=== PATIENT | male | born 1990 | race Caucasian/White ===

== ENCOUNTER 2017-07-05 01:33 | Emergency (ER) | payer SELFPAY ==
[~2017-07-05] VITALS: Ht 188 cm; Wt 86.4 kg
[2017-07-05] MEDS ORDERED: LIDOCAINE HCL 2%/EPI 1:200,000/PF 20 ML VIAL INJ ONE (02:00)
[2017-07-05] MEDS ORDERED: PERTUSS(ACELL),DIPH,TET VAC/PF 0.5 ML VIAL IM ONE (02:00)
[2017-07-05 03:45] VITALS: BP 139/83
== END 2017-07-05 04:01 | disposition home or self-care (01) ==
LOC: EMS 01:35
DX: S01.01XA Laceration without foreign body of scalp, initial encounter (principal); S01.81XA Laceration without foreign body of other part of head, initial encounter; Z23 Encounter for immunization; Y04.0XXA Assault by unarmed brawl or fight, initial encounter; Y93.89 Activity, other specified; Y92.89 Other specified places as the place of occurrence of the external cause; Y99.8 Other external cause status
CPT/HCPCS: 12001; 12011; 90471; 90715; 99284; X6474

== ENCOUNTER 2017-07-13 22:05 | Emergency (ER) | payer BC ==
[~2017-07-13] VITALS: Ht 188 cm; Wt 86.0 kg
[2017-07-13 22:28] VITALS: BP 140/79
== END 2017-07-13 23:05 | disposition home or self-care (01) ==
LOC: EMS 22:06
DX: Z48.02 Encounter for removal of sutures (principal)
CPT/HCPCS: 99282